=== PATIENT | male | born 1995 | race Two or more races ===

== ENCOUNTER 2016-05-01 00:35 | Emergency (ER) | payer OTHER ==
[2016-05-01 00:58] VITALS: TEMP 98.2
[2016-05-01] MEDS ORDERED: ONDANSETRON DISINTEGRATING 4 MG TAB PO ONE (01:05)
[2016-05-01] MEDS ORDERED: ONDANSETRON 4MG PREPACK#2 BTL TAKEHOME ONE (01:44)
--- NOTE | 2016-05-01 01:45 | EDPHY ---
H & P Stated Complaint: VOMITED X1,THROAT PAIN WITH FEVER OFF AND ON FOR 1 WEEK Time Seen by Provider: 05/01/16 00:59 HPI/ROS: HPI The patient presents with vomiting which began tonight, he had a single episode of nonbloody nonbilious emesis. This is in the setting of 1 week of intermittent fevers, cough, rhinorrhea. He has not had any abdominal pain or diarrhea. He denies any sick contacts.. REVIEW OF SYSTEMS Constitutional: Fevers for the last 1 week Eyes: No discharge. ENT: No sore throat. Cardiovascular: No chest pain, no palpitations. Respiratory: Positive for cough, no shortness of breath. Gastrointestinal: No abdominal pain, vomiting is present. Genitourinary: No hematuria. Musculoskeletal: No back pain. Skin: No rashes. Neurological: No headache. PMHx: Healthy, no diabetes no hypertension Soc Hx: College student PHYSICAL General Appearance: Alert, no distress Eyes: Pupils equal and round no pallor or injection ENT, Mouth: Mucous membranes moist, posterior pharynx normal Respiratory: There are no retractions, lungs are clear to auscultation Cardiovascular: Regular rate and rhythm Gastrointestinal: Abdomen is soft and non-tender, no masses, bowel sounds normal Neurological: A&O, moves all extremities Skin: Warm and dry, no rashes Musculoskeletal: Neck is supple non tender Extremities: symmetrical, full range of motion Psychiatric: Patient is oriented X 3, there is no agitation Source: Patient Exam Limitations: No limitations - Personal History Current Tetanus/Diphtheria Vaccine: Yes Current Tetanus Diphtheria and Acellular Pertussis (TDAP): Yes - Medical/Surgical History Hx Asthma: No Hx Chronic Respiratory Disease: No Hx Diabetes: No Hx Cardiac Disease: No Hx Renal Disease: No Hx Cirrhosis: No Hx Alcoholism: No Hx HIV/AIDS: No Hx Splenectomy or Spleen Trauma: No Other PMH: DENIES - Social History Smoking Status: Never smoked Constitutional: Initial Vital Signs Temperature (C) 36.8 C 05/01/16 00:35 Heart Rate 90 05/01/16 00:35 Respiratory Rate 18 05/01/16 00:35 Blood Pressure 144/83 H 05/01/16 00:35 O2 Sat (%) 98 05/01/16 00:35 O2 Delivery Mode Room Air Allergies/Adverse Reactions: No Known Allergies Allergy (Unverified 05/01/16 00:58) Home Medications: Medication Instructions Recorded NK [No Known Home Meds] 05/01/16 Medical Decision Making Differential Diagnosis: This is a healthy 20-year-old male who presents from home with single episode of vomiting in the setting of 1 week of cough, fever, rhinorrhea. On exam, he is well-hydrated, vital signs are normal, abdominal exam is benign. Differential diagnosis includes influenza, viral illness, toxin mediated enterocolitis. In the emergency room rapid flu was done and was negative. The patient was given a dose of Zofran 0 DT with improvement in his symptoms. He was able to tolerate fluids without difficulty and was discharged from the emergency room with a Zofran pill pack. I feel he likely has a viral illness causing his symptoms I have explained this to him. - Data Points Laboratory Results: 05/01/16 01:05 Influenza Typ A,B (DFA) NEGATIVE FOR FLU (NEGATIVE) Medications Given: Discontinued Medications Ondansetron HCl (Zofran Odt) 4 mg PO EDNOW ONE Stop: 05/01/16 01:06 Last Admin: 05/01/16 01:09 Dose: 4 mg Ondansetron HCl (Zofran Odt 4 Mg Prepack#2) 1 btl TAKEHOME EDNOW ONE Stop: 05/01/16 01:45 Last Admin: 05/01/16 01:48 Dose: 1 btl Departure - Departure Disposition: Home, Routine, Self-Care Clinical Impression: Viral illness Vomiting Qualifiers: Vomiting type: unspecified Vomiting Intractability: non-intractable Nausea presence: with nausea Qualified Code(s): R11.2 - Nausea with vomiting, unspecified Condition: Good Instructions: Acute Nausea and Vomiting (ED) Referrals: [facility] [Outside] - As per Instructions
[2016-05-01 01:51] VITALS: BP 124/85; PULSE 96; RESP 16; O2SAT 96
== END 2016-05-01 01:51 | disposition home or self-care (01) ==
DX: B34.9 Viral infection, unspecified (principal); R11.2 Nausea with vomiting, unspecified

== ENCOUNTER 2017-07-12 21:36 | Emergency (ER) | payer OTHER ==
[2017-07-12] MEDS ORDERED: NS 1,000 ML IV ONE (21:58)
[2017-07-12] MEDS ORDERED: ONDANSETRON 4 MG/2 ML VIAL IVP ONE (21:58)
--- NOTE | 2017-07-12 22:02 | EDPHY ---
H & P Stated Complaint: generalized abd pain, nausea - Personal History Current Tetanus/Diphtheria Vaccine: Unsure - Medical/Surgical History Hx Asthma: No Hx Chronic Respiratory Disease: No Hx Diabetes: No Hx Cardiac Disease: No Hx Renal Disease: No Hx Cirrhosis: No Hx Alcoholism: No Hx HIV/AIDS: No Hx Splenectomy or Spleen Trauma: No Other PMH: DENIES - Social History Smoking Status: Never smoked Time Seen by Provider: 07/12/17 21:52 HPI/ROS: CHIEF COMPLAINT: Nausea x4 days HISTORY OF PRESENT ILLNESS: 21-year-old male with prior history of gastritis [place], states that for the past 4 days he has been experiencing intermittent nausea primarily brought on by certain foods and smells. He last ate chicken tenders at [email or web address] and this elicited nausea however no abdominal pain, no right upper quadrant abdominal pain. Earlier today he was at a supermarket and smells elicited nausea. His bowel movements have been normal. He has not vomited at all over this time.. No melena or hematochezia. No back pain. No testicular pain. No urinary abnormality. PRIMARY CARE PROVIDER: REVIEW OF SYSTEMS: A ten point review of systems was performed and is negative with the exception of the items mentioned in the HPI PAST MEDICAL & SURGICAL HISTORY: Prior gastritis history. SOCIAL HISTORY: No alcohol use. [ PHYSICAL EXAM (Prior to examination, patient consented to physical exam, hands were washed and my usual and customary physical exam procedures followed) 1) GENERAL: Well-developed, well-nourished, alert and oriented. Appears to be in no acute distress. 2) HEAD: Normocephalic, atraumatic 3) HEENT: Pupils equal, round, reactive to light bilaterally. Sclera anicteric. Nasopharynx, oropharynx, clear, no lesions. Moist mucous membranes 4) NECK: Full range of motion, no meningeal signs. 5) LUNGS: Clear auscultation bilaterally, no wheezes, no rhonchi, no retractions. 6) HEART: Regular rate and rhythm, no murmur, no heave, no gallop. 7) ABDOMEN: No guarding, no rebound, no focal tenderness, negative McBurney's, negative Tellez's, negative Rovsing's, negative peritoneal sign, negative heel tap, I am unable to elicit any abdominal pain, 8) MUSCULOSKELETAL: Moving all extremities, no focal areas of tenderness, no obvious trauma. No peripheral edema or discoloration. 9) BACK: No CVA tenderness, no midline vertebral tenderness, no fluctuance, no step-off, no obvious trauma, no visual or palpable abnormality. 10) SKIN: No rash, no petechiae. 11) Psychiatric: Patient is oriented X 3, there is no agitation. DIFFERENTIAL DIAGNOSIS: My differential diagnosis includes, but is not limited to, acute appendicitis, acute cholecystitis, bowel obstruction, acute pancreatitis, testicular torsion, gastritis and urinary tract infection. The patient understands that this diagnosis is provisional and can never be 100% accurate. This is a partial list of diagnoses considered. These considerations are based on history, physical exam, past history and reassessment. (Ankit Farrell) Constitutional: Initial Vital Signs Temperature (C) 36.6 C 07/12/17 21:38 Heart Rate 83 07/12/17 21:38 Respiratory Rate 16 07/12/17 21:38 Blood Pressure 126/75 H 07/12/17 21:38 O2 Sat (%) 95 07/12/17 21:38 O2 Delivery Mode Room Air Allergies/Adverse Reactions: banana Allergy (Verified 07/12/17 21:40) Home Medications: Medication Instructions Recorded Pantoprazole Sodium [Protonix 40mg 40 mg PO DAILY #30 tab 07/12/17 (RX)] Medical Decision Making ED Course/Re-evaluation: 10:02 p.m.: Will obtain laboratory studies, administer IV antiemetic and re- evaluated. At this time I think that acute surgical abdominal pathology is less than likely. Care of patient under supervision of secondary supervising physician Dr Saldaña . Re-evaluation. I reviewed the patient's laboratory studies. I re-examined the patient. His abdomen remained soft no guarding no rebound, no McBurney's point pain.. He has been given antiemetic and IV fluid in the ER. At this time I think that acute surgical abdominal pathology is less than likely, doubt acute appendicitis. Doubt acute pancreatitis, doubt acute cholecystitis. I do not think that imaging studies are indicated at this time. I have recommended initiation of proton pump inhibitor and bland diet. I recommend follow up with energy assistant and provided this referral information. In the meantime usual and customary discharge precautions instructions regarding abdominal issues have been provided. He feels comfortable being discharged. All questions and concerns addressed by myself. (Ankit Farrell) - Data Points Laboratory Results: Laboratory Results 07/12/17 22:15 07/12/17 22:15 Medications Given: Discontinued Medications Sodium Chloride (Ns) 1,000 mls @ 0 mls/hr IV ONCE ONE PRN Reason: Wide Open Stop: 07/12/17 21:59 Last Admin: 07/12/17 22:16 Dose: 1,000 mls Ondansetron HCl (Zofran) 4 mg IVP EDNOW ONE Stop: 07/12/17 21:59 Last Admin: 07/12/17 22:17 Dose: 4 mg Departure - Departure Disposition: Home, Routine, Self-Care Clinical Impression: Nausea Condition: Good Instructions: Acute Nausea and Vomiting (ED) Additional Instructions: Eat bland food including no spicy food, no fried foods Referrals: Chris Liu MD [Medical Doctor] - 2-3 days, call for appt. Prescriptions: Pantoprazole Sodium [Protonix 40mg (RX)] 40 mg PO DAILY #30 tab
[2017-07-12 22:27] LABS: PLATELET COUNT 176 10^3/uL (150-400)
[2017-07-13 00:18] VITALS: BP 104/61
== END 2017-07-13 00:17 | disposition home or self-care (01) ==
DX: R11.0 Nausea (principal)
CPT/HCPCS: 96374; J2405